=== PATIENT | male | born 1965 | race Caucasian/White ===

== ENCOUNTER 2016-09-03 18:00 | Inpatient (IN) | payer BC ==
[2016-09-03 20:37] LABS: Appearance,Urine Clear (Clear); Bacteria,Urine Rare /hpf; Bilirubin,Urine Negative (Negative); Glucose,Urine (UA) 4+ (Negative); Ketones,Urine 1+ (Negative); Leukocyte Esterase,Urine Trace (Negative); Mucus,Urine Rare /hpf; Nitrite,Urine Negative (Negative); Particle Count 1626; Protein,Urine Negative (Negative); RBC,Urine 2 /hpf (0-5); Specific Gravity,Urine 1.025 (1.001-1.035); Squamous Epithelial Cell,Urine <1 /hpf (0-4); UA Billing (MACRO vs. MICRO) MICRO; Urobilinogen,Urine <2.0 mg/dL (<2.0); WBC,Urine 4 /hpf (0-5)
[2016-09-03 20:38] LABS: VBG PH 7.39 (7.31-7.41)
[2016-09-03 20:41] LABS: Anion Gap 19 mmol/L; Blood Urea Nitrogen 41 mg/dL (9-20); Calcium 10.2 mg/dL (8.4-10.2); Carbon Dioxide 18 mmol/L (22-30); Chloride 91 mmol/L (98-107); Non-African American GFR(MDRD) >60 (>60 ml/min/1.73 sqM); Potassium 5.8 mmol/L (3.5-5.1); Sodium 128 mmol/L (137-145)
--- NOTE | 2016-09-03 20:43 | ED ---
General Adult HPI - General Chief complaint: Recheck/Abnormal Lab/Rx Stated complaint: diabetes Time Seen by Provider: 09/03/16 18:26 Source: patient Mode of arrival: ambulatory Limitations: no limitations - History of Present Illness Initial comments: Patient is a 51-year-old male presenting to the ER for hyperglycemia. Patient went to urgent care for cough for 3 weeks for which he's been using Robitussin. Patient is not getting better and was noted to be hyperglycemic at the . Glucose at that time was 400. Patient was directed to the ER for for further management of hyperuricemia. Patient does admit to increased urination and generalized fatigue. Patient denies fever, chills, chest pain, stress breath, nausea, vomiting, diarrhea. Patient admits to a cough nonproductive. - Related Data Home Medications Medication Instructions Recorded Confirmed Multivitamin [Men's Multi-Vitamin] 1 tab PO DAILY 09/03/16 09/03/16 guaiFENesin SYRUP 100MG/5ML 200 mg PO Q8H PRN 09/03/16 09/03/16 [Robitussin] Allergies Allergy/AdvReac Type Severity Reaction Status Date / Time No Known Allergies Allergy Verified 09/03/16 19:06 Review of Systems ROS Statement: Those systems with pertinent positive or pertinent negative responses have been documented in the HPI. Constitutional: No fever and no chills. +Fatigue. HENT: No congestion, no rhinorrhea and no sore throat. Eyes: No discharge and no redness. Respiratory: +cough and no shortness of breath. Cardiovascular: No chest pain and no palpitations. Gastrointestinal: No nausea, no vomiting, no abdominal pain and no diarrhea. Genitourinary: + Frequency. No dysuria and no hematuria. Musculoskeletal: No back pain and no arthralgias. Skin: No pallor and no rash. Neurological: No dizziness and No headaches. ROS Other: All systems not noted in ROS Statement are negative. Past Medical History Past Medical History: No Reported History History of Any Multi-Drug Resistant Organisms: None Reported Past Surgical History: No Surgical Hx Reported Past Psychological History: No Psychological Hx Reported Smoking Status: Never smoker Past Alcohol Use History: Occasional Past Drug Use History: None Reported General Exam - General Exam Comments Initial Comments: Constitutional: Patient appears well-developed and well-nourished. No distress. Obese. Head: Normocephalic and atraumatic. Eyes: Conjunctivae and EOM are normal. Right eye exhibits no discharge. Left eye exhibits no discharge. No scleral icterus. Neck: Normal range of motion. Neck supple. Cardiovascular: Normal rate and regular rhythm. No murmur heard. Pulmonary/Chest: Effort normal and breath sounds normal. No respiratory distress. No wheezes. Abdominal: Soft. No distension. There is no tenderness. There is no rebound and no guarding. Musculoskeletal: Normal range of motion. No edema or tenderness. Neurological: Patient alert and oriented to person, place, and time. Skin: Skin is warm and dry. Not diaphoretic. Nursing notes and vitals reviewed. Limitations: no limitations Course Vital Signs 09/03/16 18:18 Temperature 97.5 F L Pulse Rate 78 Respiratory 20 Rate Blood Pressure 132/86 O2 Sat by Pulse 98 Oximetry - Reevaluation(s) Reevaluation #1: 09/03/16 21:33 Patient resting comfortably in the bed. Updated on results and that he will need ICU care hyperglycemia with insulin gtt. Medical Decision Making - Medical Decision Making Patient is a 51-year-old male presenting with new onset hyperglycemia. Glucose at urgent care greater than 400 and directed to ER. CBC showing leukocytosis of 17.4. Patient's VBG with a pH is 7.39. BMP with pseudohyponatremia 128, potassium 5.8, chloride 91, bicarb 18, anion gap 19, BUN 41 and creatinine 1.01 and glucose 775. UA showing glucose and ketones. Serum acetone positive. Patient was started on 2 L normal saline. Insulin and 0.05 units per kg per hour started. Patient was resting comfortably in bed. Course of stay improved. Denies pain. Discussed physical exam and diagnostic tests with patient. Questions answered and patient is agreeable to staying in the hospital. Discussed H&P and pertinent diagnostic tests with admitting physician who agrees with plan and accepts admission of patient. Notified by bed management that patient needs to go to the ICU. Discussed physical exam and diagnostic tests with burner technician agreeable to consultation and placement to the ICU. - Lab Data Result diagrams: 09/03/16 20:08 09/03/16 20:08 Lab Results 09/03/16 09/03/16 09/03/16 Range/Units 20:08 20:08 20:08 WBC 17.4 H (3.8-10.6) k/uL RBC 5.46 (4.30-5.90) m/uL Hgb 15.7 (13.0-17.5) gm/dL Hct 50.8 (39.0-53.0) % MCV 93.1 (80.0-100.0) fL MCH 28.8 (25.0-35.0) pg MCHC 30.9 L (31.0-37.0) g/dL RDW 12.9 (11.5-15.5) % Plt Count 291 (150-450) k/uL Neutrophils % 84 % Lymphocytes % 9 % Monocytes % 5 % Eosinophils % 1 % Basophils % 0 % Neutrophils # 14.6 H (1.3-7.7) k/uL Lymphocytes # 1.5 (1.0-4.8) k/uL Monocytes # 0.8 (0-1.0) k/uL Eosinophils # 0.2 (0-0.7) k/uL Basophils # 0.1 (0-0.2) k/uL VBG pH (7.31-7.41) VBG pCO2 (37-51) mmHg VBG HCO3 (24-28) mmol/L Sodium 128 L (137-145) mmol/L Potassium 5.8 H (3.5-5.1) mmol/L Chloride 91 L (98-107) mmol/L Carbon Dioxide 18 L (22-30) mmol/L Anion Gap 19 mmol/L BUN 41 H (9-20) mg/dL Creatinine 1.01 (0.66-1.25) mg/dL Est GFR (MDRD) Af Amer >60 (>60 ml/min/1.73 sqM) Est GFR (MDRD) Non-Af >60 (>60 ml/min/1.73 sqM) Glucose 775 H* (74-99) mg/dL Calcium 10.2 (8.4-10.2) mg/dL Urine Color Colorless Urine Appearance Clear (Clear) Urine pH 5.0 (5.0-8.0) Ur Specific [place] 1.025 (1.001-1.035) Urine Protein Negative (Negative) Urine Glucose (UA) 4+ H (Negative) Urine Ketones 1+ H (Negative) Urine Blood Negative (Negative) Urine Nitrate Negative (Negative) Urine Bilirubin Negative (Negative) Urine Urobilinogen <2.0 (<2.0) mg/dL Ur Leukocyte Esterase Trace H (Negative) Urine RBC 2 (0-5) /hpf Urine WBC 4 (0-5) /hpf Ur Squamous Epith Cells <1 (0-4) /hpf Urine Bacteria Rare H (None) /hpf Urine Mucus Rare H (None) /hpf Acetone, Qual Positive (Negative) 09/03/16 Range/Units 20:08 WBC (3.8-10.6) k/uL RBC (4.30-5.90) m/uL Hgb (13.0-17.5) gm/dL Hct (39.0-53.0) % MCV (80.0-100.0) fL MCH (25.0-35.0) pg MCHC (31.0-37.0) g/dL RDW (11.5-15.5) % Plt Count (150-450) k/uL Neutrophils % % Lymphocytes % % Monocytes % % Eosinophils % % Basophils % % Neutrophils # (1.3-7.7) k/uL Lymphocytes # (1.0-4.8) k/uL Monocytes # (0-1.0) k/uL Eosinophils # (0-0.7) k/uL Basophils # (0-0.2) k/uL VBG pH 7.39 (7.31-7.41) VBG pCO2 35 L (37-51) mmHg VBG HCO3 20 L (24-28) mmol/L Sodium (137-145) mmol/L Potassium (3.5-5.1) mmol/L Chloride (98-107) mmol/L Carbon Dioxide (22-30) mmol/L Anion Gap mmol/L BUN (9-20) mg/dL Creatinine (0.66-1.25) mg/dL Est GFR (MDRD) Af Amer (>60 ml/min/1.73 sqM) Est GFR (MDRD) Non-Af (>60 ml/min/1.73 sqM) Glucose (74-99) mg/dL Calcium (8.4-10.2) mg/dL Urine Color Urine Appearance (Clear) Urine pH (5.0-8.0) Ur Specific [place] (1.001-1.035) Urine Protein (Negative) Urine Glucose (UA) (Negative) Urine Ketones (Negative) Urine Blood (Negative) Urine Nitrate (Negative) Urine Bilirubin (Negative) Urine Urobilinogen (<2.0) mg/dL Ur Leukocyte Esterase (Negative) Urine RBC (0-5) /hpf Urine WBC (0-5) /hpf Ur Squamous Epith Cells (0-4) /hpf Urine Bacteria (None) /hpf Urine Mucus (None) /hpf Acetone, Qual (Negative) Disposition Clinical Impression: Hyperglycemic crisis in diabetes mellitus Disposition: ADMITTED IP TO THIS [facility] Decision to Admit Reason: Admit from EC
[2016-09-03 20:45] LABS: Basophils # (A) 0.1 k/uL (0-0.2); Basophils % (A) 0 %; CH 29.5; CHCM 31.9; Eosinophils # (A) 0.2 k/uL (0-0.7); Eosinophils % (A) 1 %; HCT 50.8 % (39.0-53.0); HDW 2.74; HGB 15.7 gm/dL (13.0-17.5); Luc # (Auto) 0.25; Luc % (Auto) 1; Lymphocytes # (A) 1.5 k/uL (1.0-4.8); Lymphocytes % (A) 9 %; MCH 28.8 pg (25.0-35.0); MCHC 30.9 g/dL (31.0-37.0); MCV 93.1 fL (80.0-100.0); Mean Platelet Volume 9.4; Monocytes # (A) 0.8 k/uL (0-1.0); Monocytes % (A) 5 %; Neutrophils # (A) 14.6 k/uL (1.3-7.7); Neutrophils % (A) 84 %; RBC 5.46 m/uL (4.30-5.90); RDW 12.9 % (11.5-15.5); WBC 17.4 k/uL (3.8-10.6); WBC (Perox) 18.35
[2016-09-03 20:49] LABS: Glucose 775 mg/dL (74-99)
[2016-09-03] MEDS ORDERED: SODIUM CHLORIDE 0.9% 1,000 ML IV STA ×2 (20:52)
[2016-09-03] MEDS: INSULIN REGULAR 100 UNIT in SODIUM CHLORIDE 0.9% 100 ML IV SCH (21:48)
--- NOTE | 2016-09-03 21:51 | XR ---
EXAMINATION TYPE: XR chest 2V DATE OF EXAM: 09/03/2016 9:42 PM COMPARISON: NONE HISTORY: Hyperglycemia. Chest pain TECHNIQUE: Frontal and lateral views of the chest are obtained. FINDINGS: Heart and mediastinum are normal. There is mild elevation of the right diaphragm. There ar e no hilar masses. There is no sign of pleural effusion. Bony thorax is intact. IMPRESSION: Mild elevated right diaphragm could relate to partial paralysis. Normal heart.
[2016-09-03 23:06] LABS: Glucose,Whole Blood >600 mg/dL (75-99)
[2016-09-03 23:20] LABS: Glucose,Whole Blood 558 mg/dL (75-99)
[2016-09-03] MEDS: SODIUM CHLORIDE 0.9% 1,000 ML IV SCH (23:43)
[2016-09-04] MEDS ORDERED: NALOXONE 0.4 MG/ML 1 ML VIAL IV PRN (00:03)
[2016-09-04 00:20] LABS: Glucose,Whole Blood 485 mg/dL (75-99)
[2016-09-04 00:22] VITALS: BMI 47.3
[2016-09-04 01:09] LABS: Anion Gap 16 mmol/L; Blood Urea Nitrogen 35 mg/dL (9-20); Carbon Dioxide 21 mmol/L (22-30); Chloride 100 mmol/L (98-107); Non-African American GFR(MDRD) >60 (>60 ml/min/1.73 sqM); Phosphorous 4.1 mg/dL (2.5-4.5); Potassium 4.6 mmol/L (3.5-5.1); Sodium 137 mmol/L (137-145)
[2016-09-04 01:11] LABS: Glucose,Whole Blood 422 mg/dL (75-99)
[2016-09-04 01:12] LABS: Glucose 516 mg/dL (74-99)
[2016-09-04 03:09] LABS: Glucose,Whole Blood 377 mg/dL (75-99)
[2016-09-04 04:03] LABS: Glucose,Whole Blood 316 mg/dL (75-99)
[2016-09-04 05:06] LABS: Glucose,Whole Blood 256 mg/dL (75-99)
[2016-09-04] MEDS: INSULIN REGULAR 100 UNIT in SODIUM CHLORIDE 0.9% 100 ML IV SCH (05:17)
[2016-09-04 05:18] LABS: Basophils # (A) 0.1 k/uL (0-0.2); Basophils % (A) 1 %; CH 29.9; CHCM 33.7; Eosinophils # (A) 0.2 k/uL (0-0.7); Eosinophils % (A) 1 %; HCT 44.1 % (39.0-53.0); HDW 2.71; HGB 14.4 gm/dL (13.0-17.5); Luc # (Auto) 0.36; Luc % (Auto) 2; Lymphocytes # (A) 2.5 k/uL (1.0-4.8); Lymphocytes % (A) 15 %; MCHC 32.6 g/dL (31.0-37.0); MCV 89.1 fL (80.0-100.0); Mean Platelet Volume 8.3; Monocytes # (A) 0.7 k/uL (0-1.0); Monocytes % (A) 4 %; Neutrophils # (A) 13.1 k/uL (1.3-7.7); Neutrophils % (A) 77 %; RBC 4.95 m/uL (4.30-5.90); RDW 13.2 % (11.5-15.5); WBC (Perox) 17.41
[2016-09-04 05:23] LABS: Anion Gap 12 mmol/L; Blood Urea Nitrogen 31 mg/dL (9-20); Calcium 9.4 mg/dL (8.4-10.2); Carbon Dioxide 24 mmol/L (22-30); Chloride 104 mmol/L (98-107); Glucose 289 mg/dL (74-99); Magnesium 2.2 mg/dL (1.6-2.3); Non-African American GFR(MDRD) >60 (>60 ml/min/1.73 sqM); Phosphorous 3.4 mg/dL (2.5-4.5); Sodium 140 mmol/L (137-145)
[2016-09-04] MEDS: D5-0.45% NACL WITH KCL 20MEQ/L 1,000 ML IV SCH ×2 (05:41→12:16)
[2016-09-04] MEDS: SODIUM CHLORIDE 0.9% 1,000 ML IV SCH ×2 (05:42→07:53)
[2016-09-04 05:48] LABS: Glucose,Whole Blood 215 mg/dL (75-99)
[2016-09-04 06:53] LABS: Glucose,Whole Blood 181 mg/dL (75-99)
[2016-09-04 08:13] LABS: Glucose,Whole Blood 198 mg/dL (75-99)
[2016-09-04] MEDS: PANTOPRAZOLE 40 MG/10 ML VIAL IV SCH (08:27)
[2016-09-04] MEDS: HEPARIN SODIUM,PORCINE 5,000 UNIT/ML 1 ML VIAL SQ SCH ×2 (08:28→22:20)
[2016-09-04 09:08] LABS: Glucose,Whole Blood 227 mg/dL (75-99)
[2016-09-04 10:05] LABS: Glucose,Whole Blood 251 mg/dL (75-99)
[2016-09-04 10:58] LABS: ALT 79 U/L (21-72); AST 38 U/L (17-59); Alkaline Phosphatase 105 U/L (38-126); Anion Gap 7 mmol/L; Blood Urea Nitrogen 25 mg/dL (9-20); Calcium 8.7 mg/dL (8.4-10.2); Carbon Dioxide 27 mmol/L (22-30); Chloride 104 mmol/L (98-107); Glucose 287 mg/dL (74-99); Non-African American GFR(MDRD) >60 (>60 ml/min/1.73 sqM); Potassium 4.6 mmol/L (3.5-5.1); Sodium 138 mmol/L (137-145); Total Bilirubin 0.5 mg/dL (0.2-1.3); Total Protein 6.5 g/dL (6.3-8.2)
--- NOTE | 2016-09-04 11:08 | P.CNPUL ---
History of Present Illness Consult date: 09/04/16 Reason for consult: other Chief complaint: Hyperosmolar hyperglycemic coma History of present illness: 51-year-old male who presented to the emergency department with hyperglycemia. He apparently has been having a cough for the last couple weeks. He was taking Robitussin drinking lots of orange juice. He was found to be hyperglycemic at urgent care and sent to the emergency room. Sugar was initially 400 and then 700 or so. He has no prior history of diabetes. Really has no major medical problems except sleep apnea for which he uses CPAP. The diabetes diagnosis is new. Anyway he came in with a combination of what looks like mild DKA as well as hyperglycemic nonketotic coma. He was admitted to the ICU. He was placed on insulin drip which she still on at 3.2 units an hour and given 2 L of fluid. Doing much better now. Really not bringing up any phlegm. He is getting O2 at 3 L. His chest x-ray shows either atelectasis or patchy infiltrates at the lung bases. His IV currently is D5.45 with 20 of potassium at 150 an hour. His blood sugars less than 250 his bicarbonate concentration is 24 and his anion gap is normal. Hence, the insulin drip could be turned off. From encourage him to eat. He used to see Dr. Renner but doesn't see any doctor currently. Review of Systems A 12 point review of systems is positive for primarily cough. Really did not have any other major complaints. No fever no chills. No nausea vomiting or diarrhea. Past Medical History Past Medical History: No Reported History History of Any Multi-Drug Resistant Organisms: None Reported Past Surgical History: No Surgical Hx Reported Past Anesthesia/Blood Transfusion Reactions: No Reported Reaction Past Psychological History: No Psychological Hx Reported Smoking Status: Never smoker Past Alcohol Use History: Occasional Past Drug Use History: None Reported - Past Family History Mother Family Medical History: Cancer Additional Family Medical History / Comment(s): one kidney and uterus removed by [facility] Father Family Medical History: No Reported History Medications and Allergies Home Medications Medication Instructions Recorded Confirmed Type Multivitamin [Men's Multi-Vitamin] 1 tab PO DAILY 09/03/16 09/03/16 History guaiFENesin SYRUP 100MG/5ML 200 mg PO Q8H PRN 09/03/16 09/03/16 History [Robitussin] Allergies Allergy/AdvReac Type Severity Reaction Status Date / Time No Known Allergies Allergy Verified 09/03/16 19:06 Physical Exam Osteopathic Statement: *. No significant issues noted on an osteopathic structural exam other than those noted in the History and Physical/Consult. Vitals: Vital Signs Temp Pulse Pulse Resp BP BP Pulse Ox 09/04/16 10:00 81 36 H 140/94 95 09/04/16 09:00 95 21 127/86 94 L 09/04/16 08:00 97.7 F 94 20 110/64 92 L 09/04/16 07:00 98 18 100/70 89 L 09/04/16 06:00 104 H 18 117/65 85 L 09/04/16 05:00 108 H 15 115/71 96 09/04/16 04:00 98.6 F 103 H 105 H 18 105/70 94 L 09/04/16 03:50 112 H 105/70 88 L 09/04/16 03:40 92 125/63 88 L 09/04/16 03:30 108 H 125/63 85 L 09/04/16 03:20 110 H 125/63 94 L 09/04/16 03:10 111 H 125/63 92 L 09/04/16 03:00 113 H 16 125/63 94 L 09/04/16 01:50 107 H 125/63 95 09/04/16 01:40 109 H 109/65 96 09/04/16 01:30 112 H 109/65 96 09/04/16 01:20 109 H 109/65 96 09/04/16 01:10 109 H 109/65 95 09/04/16 01:00 113 H 109/65 94 L 09/04/16 00:50 112 H 109/65 94 L 09/04/16 00:40 109 H 124/78 94 L 09/04/16 00:30 110 H 124/78 94 L 09/04/16 00:20 111 H 124/78 95 09/04/16 00:10 110 H 124/78 93 L 09/04/16 00:03 105 H 16 09/04/16 00:00 109 H 18 124/78 93 L 09/03/16 23:50 109 H 124/78 95 09/03/16 23:40 111 H 141/98 92 L 09/03/16 23:30 125 H 18 141/98 94 L 09/03/16 23:20 113 H 141/98 93 L 09/03/16 23:12 93 L 09/03/16 22:00 98 F 77 16 138/79 97 09/03/16 21:55 97.8 F 105 H 18 124/70 94 L Intake and Output 09/03/16 09/04/16 09/04/16 21:59 06:59 14:59 Intake Total 609.493 Output Total 450 Balance 159.493 Intake: IV Insulin Regular 100 unit In Sodium Chloride 0.9% 100 ml @ 0.05 UNITS/KG/HR 7.78 mls/hr IV .[id number] CARLOS Rx#:[id number] Sodium Chloride 0.9% 1, 000 ml @ 200 mls/hr IV . Q5H CARLOS Rx#:[id number] Sodium Chloride 0.9% 1, 000 ml @ 999 mls/hr IV . Q1H1M STA Rx#:[id number] Intake, IV Titration 609.493 Amount D5-0.45% NaCl with KCl 600 20Meq/l 1,000 ml @ 150 mls/hr IV .Q6H40M CARLOS Rx# :[id number] Insulin Regular 100 unit 9.493 In Sodium Chloride 0.9% 100 ml @ 0.05 UNITS/KG/HR 7.78 mls/hr IV .[id number] CARLOS Rx#:[id number] Output: Urine 450 Other: Voiding Method Urinal # Voids 1 Weight No acute distress, oriented 3. HEENT is within normal range. Mucous membranes are moist. No oral lesions. Neck supple full range of motion. No adenopathy or thyromegaly. Neck veins are flat. Cardiovascular examination reveals regular rhythm rate. S1-S2 normal. No S3- S4 or murmur. Lungs clear breath sounds equal. No wheezes or rhonchi. Abdomen soft bowel sounds are heard. Extremities are intact. No cyanosis clubbing or edema. Results - Laboratory Findings CBC and BMP: 09/04/16 04:38 09/04/16 04:38 Abnormal lab findings: Abnormal Labs 09/03/16 09/03/16 09/04/16 22:56 23:16 00:18 WBC Neutrophils # Carbon Dioxide BUN Glucose POC Glucose (mg/dL) >600 H 558 H 485 H 09/04/16 09/04/16 09/04/16 00:20 01:08 03:07 WBC Neutrophils # Carbon Dioxide 21 L BUN 35 H Glucose 516 H* POC Glucose (mg/dL) 422 H 377 H 09/04/16 09/04/16 09/04/16 04:02 04:38 04:38 WBC 17.0 H Neutrophils # 13.1 H Carbon Dioxide BUN 31 H Glucose 289 H POC Glucose (mg/dL) 316 H 09/04/16 09/04/16 09/04/16 05:03 05:46 06:51 WBC Neutrophils # Carbon Dioxide BUN Glucose POC Glucose (mg/dL) 256 H 215 H 181 H 09/04/16 09/04/16 09/04/16 08:11 09:06 10:04 WBC Neutrophils # Carbon Dioxide BUN Glucose POC Glucose (mg/dL) 198 H 227 H 251 H - Diagnostic Findings Chest x-ray: image reviewed (X-rays labs and medications are all reviewed.) Assessment and Plan (1) Acute bronchitis Status: Acute (2) Bronchopneumonia Status: Acute (3) Sleep apnea syndrome Status: Acute (4) Hyperglycemic crisis in diabetes mellitus Status: Acute Plan: Plan The patient's doing well. The patient we converted over to NovoLog sliding scale before meals and at bedtime. The patient can be fed. Later today if the patient stable in go out to the general medical floor. The patient otherwise is doing well. I'll look of the medications and make sure he is on appropriate medications. Should probably get something for in way of an antibiotic if he is not a really on one. Additional recommendations suggestions are forthcoming. Time with Patient: Greater than 30
[2016-09-04 11:12] LABS: Glucose,Whole Blood 321 mg/dL (75-99)
[2016-09-04 12:07] LABS: Glucose,Whole Blood 290 mg/dL (75-99)
[2016-09-04] MEDS: AZITHROMYCIN 500 MG TAB PO SCH (12:13)
[2016-09-04] MEDS: CHLORPHEN-HYDROcod 8-10mg/5ml 5 ML ORAL.SYRG PO SCH (12:13)
[2016-09-04 15:15] LABS: Hemoglobin A1C 13.1 % (4.2-6.1)
[2016-09-04 18:18] LABS: Glucose,Whole Blood 403 mg/dL (75-99)
[2016-09-04] MEDS: INSULIN LISPRO (humaLOG) 300 UNIT/3 ML VIAL SQ SCH ×2 (18:20→22:25)
[2016-09-04 20:23] LABS: Glucose,Whole Blood 337 mg/dL (75-99)
[2016-09-04] MEDS: BENZONATATE 100 MG CAP PO SCH ×2 (22:17→22:25)
--- NOTE | 2016-09-04 23:21 | HP ---
DATE OF ADMISSION: 09/03/2016 CHIEF COMPLAINT: Frequent urination. HISTORY OF PRESENT ILLNESS: The is the first admission for this 51-year-old white male who has been in good health. He has had some frequent urination of late and has had a little bit of weight loss. He came to the emergency room where his hemoglobin A1c was 13.1, and his blood sugars are around 400. He does not have a family history, and he has never had any trouble before. He has otherwise been in good health. He is overweight. REVIEW OF SYSTEMS: He has had no change in vision or hearing, cough, shortness of breath. No chest pain, breath, palpitations, orthopnea, PND, abdominal pain, hematemesis, melena, hematochezia, jaundice, hematuria, frequency, urgency, arthralgias, etc. Past medical history, family history, and personal and social histories are all otherwise unremarkable and noncontributory. He is not allergic to any medication. He has had no surgery. He is not on any medication. Negative family history. He does not smoke. PHYSICAL EXAM: Blood pressure 147/84 with a pulse 102, respirations 32, and he is afebrile. GENERAL: Appeared to be overweight and in no acute distress. SKIN: Skin color is normal. Skin is warm and dry. Lymph nodes are not enlarged. Head, ears, eyes, nose, mouth, and throat were normal. NECK: Neck veins not distended. Thyroid is not enlarged. CHEST: Clear. CARDIAC: Normal. Soft, nontender. EXTREMITIES: Normal. IMPRESSION: 1. Newly diagnosed uncontrolled diabetes mellitus. 2. Obesity. PLAN: 1. Bed rest. 2. IV fluids. 3. Diabetic teaching. 4. He wants to try oral agents first and we will start him on metformin and Amaryl.
--- NOTE | 2016-09-04 23:28 | PN ---
DATE OF SERVICE: 09/04/2016 CHIEF COMPLAINT: Diabetic ketoacidosis. HISTORY OF PRESENT ILLNESS: This gentleman is doing okay and were going to be starting him on treatment. We had a long discussion about ( ) oral medications regarding insulin but he wants to try oral products first and will try to lose weight and exercise. PHYSICAL EXAMINATION: Chest is clear. Cardiac exam is normal. The abdomen is protuberant and soft. IMPRESSION: 1. Uncontrolled diabetes. 2. Obesity. PLAN: Start metformin and Amaryl and probably home tomorrow.
[2016-09-05] MEDS: HEPARIN SODIUM,PORCINE 5,000 UNIT/ML 1 ML VIAL SQ SCH ×3 (00:29→18:01)
[2016-09-05] MEDS: CHLORPHEN-HYDROcod 8-10mg/5ml 5 ML ORAL.SYRG PO SCH ×2 (00:29→08:09)
[2016-09-05 01:19] VITALS: RESP 16
[2016-09-05 07:06] LABS: Glucose,Whole Blood 318 mg/dL (75-99)
[2016-09-05 07:26] LABS: Basophils # (A) 0.1 k/uL (0-0.2); Basophils % (A) 1 %; CH 29.7; CHCM 32.8; Eosinophils # (A) 0.3 k/uL (0-0.7); Eosinophils % (A) 3 %; HCT 42.6 % (39.0-53.0); HDW 2.69; HGB 13.9 gm/dL (13.0-17.5); Luc # (Auto) 0.31; Luc % (Auto) 3; Lymphocytes # (A) 2.2 k/uL (1.0-4.8); Lymphocytes % (A) 24 %; MCH 29.7 pg (25.0-35.0); MCHC 32.6 g/dL (31.0-37.0); MCV 91.2 fL (80.0-100.0); Mean Platelet Volume 8.7; Monocytes # (A) 0.4 k/uL (0-1.0); Monocytes % (A) 5 %; Neutrophils # (A) 5.8 k/uL (1.3-7.7); Neutrophils % (A) 64 %; RBC 4.67 m/uL (4.30-5.90); RDW 13.1 % (11.5-15.5); WBC 9.1 k/uL (3.8-10.6); WBC (Perox) 8.88
[2016-09-05 07:43] LABS: Anion Gap 10 mmol/L; Blood Urea Nitrogen 17 mg/dL (9-20); Calcium 8.8 mg/dL (8.4-10.2); Carbon Dioxide 24 mmol/L (22-30); Chloride 102 mmol/L (98-107); Glucose 339 mg/dL (74-99); Non-African American GFR(MDRD) >60 (>60 ml/min/1.73 sqM); Phosphorous 3.2 mg/dL (2.5-4.5); Potassium 4.7 mmol/L (3.5-5.1); Sodium 136 mmol/L (137-145)
[2016-09-05] MEDS: INSULIN LISPRO (humaLOG) 300 UNIT/3 ML VIAL SQ SCH ×3 (08:10→18:02)
[2016-09-05] MEDS: PANTOPRAZOLE 40 MG/10 ML VIAL IV SCH (08:10)
[2016-09-05] MEDS: AZITHROMYCIN 500 MG TAB PO SCH (08:11)
[2016-09-05] MEDS: BENZONATATE 100 MG CAP PO SCH ×2 (08:11→18:01)
[2016-09-05] MEDS ORDERED: INSULIN NPL/INSULIN LISPRO 100 UNIT/ML 10 ML VIAL (Humalog 75/25) SQ ONE (10:38)
[2016-09-05 12:13] LABS: Glucose,Whole Blood 315 mg/dL (75-99)
--- NOTE | 2016-09-05 13:50 | P.DS ---
Providers Date of admission: 09/03/16 21:05 Expected date of discharge: 09/05/16 Attending physician: Chuck Cooley Consults: 09/03/16 21:55 Consult Physician Routine Consulting Provider: Magno Roca Consult Reason/Comments: HHS Do you want consulting provider notified?: Already Contacted Primary care physician: Stated None Hospital Course: 51-year-old present on admission to the emergency room after patient had gone to an urgent care clinic where patient stated he was being seen for cough onset 3 weeks prior in which he had been using [id number] Robitussin patient stated despite using the product he did not improve at the clinic was noted to have an elevated blood sugar of 400 was told he needed to come to the emergency room to be evaluated for the hyperglycema episode patient was admitted to the services of the attending. Patient does admit to having frequent urination with generalized fatigue decreased endurance. Patient denied any fever chills chest pain shortness of breath a nausea vomiting. Patient stated he had been coughing but had not been productive in the emergency room the temp is 97.7 heart rate in the 70s patient initially was transferred to the intensive care unit treated for the hyperglycemic episode and started on an insulin drip on admission the potassium was 5.8 creatinine 1 leukocytosis with a WBC of 17 serum acetone positive urine positive for glucose and ketones. Sodium was low at 128 patient was admitted to the intensive care unit monitored closely was able to be transferred to the [facility] floor once patient was stabilized chest x-ray did show right hemidiaphragm elevation 12-lead EKG showed sinus Hemoglobin A1c was 13.1 diabetic education was initiated both with the patient and the patient's spouse patient was receptive to using insulin and was instructed on administering insulin. Patient was anxious to be discharged home patient was started on 70-30 Humalog 60 units in the morning with 30 at bedtime Additionally patient was seen by pulmonology service was started on zithomax 500 mg daily for tracheobronchitis Patient remained afebrile the white count was down to 9.1 on admission was 17.4 Impression discharge diagnosis Present on admission hyperglycemic blood sugar 400 Present on admission frequent urination frequent thirst generalized fatigue decreased endurance suspect due to undiagnosed type 2 diabetes hemoglobin A1c13.1 Present on admission hyponatremia resolved sleep apnea with CPAP therapy Present on admission mild DKA as well as hyperglycemic nonketotic coma New-onset type 2 diabetes newly diagnosed Hyperglycemic crisis and diabetic mellitus Acute tracheobronchitis Bronchial pneumonia Morbid obesity BMI 47.4 The above dictated assessment and findings were discussed with dr cooley. Impression and the plan of care have been dictated as directed. Kathi Braxton nurse practitioner acting as a scribe for dr cooley Plan - Discharge Summary New Discharge Prescriptions: Azithromycin [Zithromax] 500 mg PO DAILY #7 tab Insulin NPH/Reg Insulin 70/30 [humuLIN 70/30 VIAL] 60 unit SQ AC-BRKFST #1 vial Insulin NPH/Reg Insulin 70/30 [humuLIN 70/30 VIAL] 30 unit SQ AC-SUPPER #1 vial Discharge Medication List Multivitamin [Men's Multi-Vitamin] 1 tab PO DAILY 09/03/16 [History] guaiFENesin SYRUP 100MG/5ML [Robitussin] 200 mg PO Q8H PRN 09/03/16 [History] Azithromycin [Zithromax] 500 mg PO DAILY #7 tab 09/05/16 [Rx] Benzonatate [Tessalon Perles] 200 mg PO TID cap 09/05/16 [Rx] Insulin NPH/Reg Insulin 70/30 [humuLIN 70/30 VIAL] 30 unit SQ AC-SUPPER #1 vial 09/05/16 [Rx] Insulin NPH/Reg Insulin 70/30 [humuLIN 70/30 VIAL] 60 unit SQ AC-BRKFST #1 vial 09/05/16 [Rx] Follow up Appointment(s)/Referral(s): Chuck Cooley MD [STAFF PHYSICIAN] - 1 Week Evaristo Mejia MD [STAFF PHYSICIAN] - 09/19/16 2:00 pm () Magno Roca DO [Doctor of Osteopathic Medicine] - As Needed Patient Instructions/Handouts: Type 2 Diabetes in Adults (DC), Basic Carbohydrate Counting (DC) Activity/Diet/Wound Care/Special Instructions: Patient was seen by family living educator bunny has been set up for diabetic education classes Discharge Disposition: HOME SELF-CARE
--- NOTE | 2016-09-05 14:33 | P.PN ---
Laura Rocha is doing well. He has no specific complaints. No cough or sputum production. He has the okay from the medical team to be discharged home. He' ll be going on insulin. He'll be also completing a course of Z-Kyle. The patient has also subject of sleep apnea and is maintained on CPAP on outpatient basis. Objective - Vital Signs Vital signs: Vital Signs Temp 98.1 F 09/05/16 07:00 Pulse 95 09/05/16 07:00 Resp 16 09/05/16 07:00 BP 103/58 09/05/16 07:00 Pulse Ox 93 L 09/05/16 07:00 Intake & Output 09/04/16 09/05/16 09/05/16 18:59 06:59 18:59 Intake Total 1095.506 Output Total 650 Balance 445.506 Weight 154 kg Intake: Intake, IV Titration 975.506 Amount D5-0.45% NaCl with KCl 950 20Meq/l 1,000 ml @ 50 mls /hr IV .Q20H CARLOS Rx#: [id number] Insulin Regular 100 unit 25.506 In Sodium Chloride 0.9% 100 ml @ 0.05 UNITS/KG/HR 7.78 mls/hr IV .[id number] CARLOS Rx#:[id number] Oral 120 Output: Urine 650 Other: Voiding Method Toilet # Voids 1 2 - Exam A patient is morbidly obese. The patient appeared well nourished and normally developed. Vital signs as documented. Head exam is unremarkable. No scleral icterus or corneal arcus noted. Neck is without jugular venous distension, thyromegaly, or carotid bruits. Mallampati grade 4. Carotid upstrokes are brisk bilaterally. Lungs are clear to auscultation and percussion. Diminished BS in the lung bases. Cardiac exam reveals the PMI to be normally sized and situated. Rhythm is regular. First and second heart sounds normal. No murmurs, rubs or gallops. Abdominal exam reveals normal bowel sounds, no masses, no organomegaly and no aortic enlargement. Extremities are nonedematous and both femoral and pedal pulses are normal. - Labs CBC & Chem 7: 09/05/16 07:04 09/05/16 07:04 Labs: Abnormal Lab Results - Last 24 Hours (Table) 09/04/16 09/04/16 09/04/16 Range/Units 04:38 18:16 20:21 Sodium (137-145) mmol/L Glucose (74-99) mg/dL POC Glucose (mg/dL) 403 H 337 H (75-99) mg/dL Hemoglobin A1c 13.1 H (4.2-6.1) % 09/05/16 09/05/16 09/05/16 Range/Units 07:01 07:04 11:47 Sodium 136 L (137-145) mmol/L Glucose 339 H (74-99) mg/dL POC Glucose (mg/dL) 318 H 315 H (75-99) mg/dL Hemoglobin A1c (4.2-6.1) % Assessment and Plan Plan: Assessment 1 new onset diabetes mellitus 2 acute bronchitis 3 morbid obesity with a BMI of 47 4 obstructive sleep apnea. PLAN Agree on discharge from the pulmonary standpoint. Follow up with his primary care physician regarding diabetes. Follow-up with me if needed regarding obstructive sleep apnea. Completed the course of Carlos-Kyle.
[2016-09-05 15:36] VITALS: BP 119/76; PULSE 103; TEMP 97.1
[2016-09-05 16:51] LABS: Glucose,Whole Blood 232 mg/dL (75-99)
--- NOTE | 2016-09-05 18:51 | PN ---
CHIEF COMPLAINT: Uncontrolled diabetes. HISTORY OF PRESENT ILLNESS: This gentleman and his do not want to take insulin. They are going to find a physician who will treat him without using insulin. He is doing well and he can probably go home otherwise. PHYSICAL EXAMINATION: CHEST: Clear. CARDIAC: Normal. ABDOMEN: Soft, nontender. IMPRESSION: 1. Type 2 [id number] diabetes mellitus. 2. Obesity. PLAN: He can go home today on oral agents, but now his thinks that she wants him to be on just pills. He is to see the diabetic educators and decide whether or not it will be oral medication or insulin. He can probably go home today, and this may be arranged by the nurse practitioner.
[2016-09-06] MEDS ORDERED: PANTOPRAZOLE 40 MG TABLET PO SCH (07:30)
== END 2016-09-05 19:53 | disposition home or self-care (01) | DRG 637 ==
LOC: EC 18:00 → 6ICU 21:05 → 3SUR 09-04 14:03
PROVIDERS: ADMIT Family Medicine; ATTEND Family Medicine
DX: E13.11 Other specified diabetes mellitus with ketoacidosis with coma (principal); J18.0 Bronchopneumonia, unspecified organism; E87.0 Hyperosmolality and hypernatremia; Z68.42 Body mass index [BMI] 45.0-49.9, adult; J98.11 Atelectasis; E66.01 Morbid (severe) obesity due to excess calories; G47.33 Obstructive sleep apnea (adult) (pediatric); J20.9 Acute bronchitis, unspecified
CPT/HCPCS: 36415; 71020; 80048; 80051; 80053; 81001; 82009; 82565; 82803; 82947; 83036; 83735; 84100; 84520; 85025; 93005; 96365; 99285

== ENCOUNTER → 2018-09-18 | Outpatient (CLI) | payer BC ==
--- NOTE | 2018-09-18 23:38 | CONS ---
CONSULTATION REASON FOR CONSULTATION: Sleep apnea. This is a 53-year-old male patient who was diagnosed having obstructive sleep apnea back in 2012. Since then, the patient has been on treatment and has been very successfully treated. Recently his machine stopped working and he is quite symptomatic, to the point where the patient cannot function at work, and he is in need of a CPAP unit as soon as possible. For that reason he came into the office for investigation and advice. For now, the patient's sleep is fragmented. He is snoring loudly, quits breathing at night frequently. He is excessively sleepy during the day. His current Spencer Score is 20. He is also a hazard, as the patient may be on and off falling asleep while driving. He was advised not to drive at this point in time until his sleep apnea is well treated. He goes to bed around 9 p.m., wakes up at 5 a.m. in the morning. He snores and stops breathing and wakes up tired and sleepy and has trouble with attention, memory and concentration. Going back through the records, I was able to retrieve his original sleep study that was done through [facility]. The patient was diagnosed having severe obstructive sleep apnea with an AHI of 88.7. He was offered CPAP therapy and he was being treated with a CPAP pressure of 14 cm of water. According to him, his treatment has been successful and he has been utilizing a full-face mask. His DME is [facility]. PAST MEDICAL HISTORY: 1. Obstructive sleep apnea. 2. Obesity. 3. Diabetes mellitus. PAST SURGICAL HISTORY: None. DRUG ALLERGIES: PENICILLIN. OUTPATIENT MEDICATION: Includes: 1. Trulicity on a weekly basis. 2. Toujeo on a daily basis. SOCIAL HISTORY: The patient is a nonsmoker. No history of alcoholism. No history of IV drugs. FAMILY HISTORY: Negative for any sleep breathing disorder or sleep apnea. REVIEW OF THE SYSTEMS: Fourteen-point review of systems was done. The patient has been having daytime sleepiness. He is falling asleep during the day. He is very tired and sleepy and symptomatic from his disease. He does not get rested despite averaging around 8 hours of sleep. No issues with insomnia. No issues with grinding of the teeth. He wakes up with a dry mouth. He has no anxiety or panic attacks or depression or bipolar disorder. No palpitations. No heartburn, chest pain or shortness of breath at nighttime. No restlessness in his lower extremities. No sleepwalking or sleeptalking. Fourteen-point review of systems was done and positive findings are all mentioned in the history of present illness. PHYSICAL EXAMINATION: BP is 146/87, pulse 94, respiratory rate 16, temperature 98.6, saturation 93% on room air. Height is 5 feet 10 inches. Weight is 355, BMI is 50.9. GENERAL APPEARANCE: Calm, comfortable. No acute distress. Head is atraumatic, normocephalic. NECK: Supple. There is no JVD. No goiter or neck masses. Mallampati class IV. LUNGS: Clear to auscultation. Heart sounds are regular rate and rhythm. Normal S1, S2. No S3, S4. No murmurs. ABDOMEN: Soft, nontender. No organomegaly. EXTREMITIES: No edema. No cyanosis or clubbing. NEUROLOGIC: Alert and oriented x3. No focal neurological deficits. Psychiatrically negative for anxiety or depression. SKIN: Negative for any wounds or ulceration. IMPRESSION: 1. Severe symptomatic obstructive sleep apnea. The patient's AHI is 88.7. The patient was receiving CPAP therapy at a pressure of 14. His machine is broken and currently he is very symptomatic. 2. Hypersomnia; Spencer score of 20. 3. Diabetes mellitus. PLAN: 1. Encourage weight loss. 2. Reviewed his older [facility] sleep study. I think it is reasonable to order the patient immediately an APAP unit, minimum pressure of 5, maximum pressure of 20, with a full-face mask, to improve and optimize his sleep apnea control. Following that, we will make further recommendations and adjustments in his CPAP unit based on his overall clinical response. He will see me back in the office in 30 to 90 days after obtaining his CPAP machine. An order was given to [facility], his DME, to deliver this patient a CPAP unit. Will continue to follow. MMODL / IJN: [id number] /
== END ==
LOC: SLEEP 14:24
PROVIDERS: ATTEND Internal Medicine Critical Care Medicine
DX: G47.33 Obstructive sleep apnea (adult) (pediatric) (principal); E66.9 Obesity, unspecified; E11.9 Type 2 diabetes mellitus without complications; Z88.0 Allergy status to penicillin; Z79.84 Long term (current) use of oral hypoglycemic drugs; Z99.89 Dependence on other enabling machines and devices; Z68.43 Body mass index [BMI] 50.0-59.9, adult
CPT/HCPCS: 99211